=== PATIENT | male | born 1960 | race Caucasian/White ===

== ENCOUNTER 2025-06-07 15:20 | Emergency (ER) | payer BC ==
[~2025-06-07] VITALS: Ht 170.2 cm; Wt 91.8 kg
[~2025-06-07 15:20] MED LIST: CEFU500T66 PO
--- NOTE | 2025-06-07 15:42 | ELECTROCARDIOGRAPH REPORT ---
[facility] Test Date: 2025-06-07 Test Time: 15:40:52 Pat Name: PATRICIA BOSTON Department: [facility]- Patient ID: [facility]-[id number] Room: Gender: M Manager Billing: : 1960 Requested By: LORENA VALERO Order Number: [id number] Reading MD: Dr. AKSHAT Piedra Measurements Intervals [place] Rate: 99 P: 60 [place]: 166 QRS: 73 QRSD: 106 T: 13 QT: 417 QTc: 536 Interpretive Statements Sinus rhythm RSR' in V1 or V2, right VCD or RVH Prolonged QT interval Electronically Signed On 06-08-2025 17:18:[address] AKSHAT Piedra Please click the below link to view image of tracing.
--- NOTE | 2025-06-07 15:57 | RADIOLOGY REPORT ---
CHEST RADIOGRAPH Indication: sob Technique: Frontal and lateral view of the chest was obtained Comparison: None FINDINGS: Lines and Tubes: None Lungs: Increased interstitial prominence. This may represent pulmonary vascular congestion and/or viral pneumonia. Pleura: No effusion.No pneumothorax. Cardiomediastinal contours: Unremarkable Bones: Unremarkable IMPRESSION: Increased interstitial prominence. This may represent pulmonary vascular congestion and/or viral pneumonia.
[2025-06-07 15:59] LABS: MEAN PLATELET VOLUME 7.7 FL (7.4-10.4); RED CELL DISTRIBUTION WIDTH 14.4 % (11.5-14.5)
[2025-06-07 16:16] LABS: CREATININE 1.07 MG/DL (0.60-1.10); PRO BRAIN NATRIURETIC PEPTIDE 32 PG/ML (0-125); TOTAL CARBON DIOXIDE 22.5 MMOL/L (24-32); eCRCL 66 ML/MIN; eGFR 70 ML/MIN
--- NOTE | 2025-06-07 16:17 | Physician Documentation ---
History of Present Illness ~ Chief Complaint: Shortness of Breath Stated Complaint: SOB Time Seen by MD: 16:20 HPI 65-year-old male presents to the ED with increasing shortness of breath over the last week. States he has a cough as well. States he stopped smoking 15 years ago and has never been diagnosed with the your COPD. He reports that he feels as though he can not take a full breath. Denies any fevers or nausea vomiting. denies any chest pain Day of Onset: Jun 07, 2025 Medication Reconciliation Allergies: Coded Allergies: shellfish derived (Unverified Allergy, Intermediate, lips swell, 06/07/25) Scheduled Budesonide/Formoterol Fumarate (Symbicort 80-4.5 Mcg Inhaler), 2 PUFFS INH Q12H Cefuroxime Axetil (Cefuroxime), 1 TAB PO Q12H Scheduled PRN albuterol inhaler (Pro-Air Inhaler), 2 PUFFS INH Q4HPRN PRN for wheezing Past Medical History Past Medical History: Hypertension Alcohol Use: Heavy Physical Exam Vital Signs: Temperature: 97.6, Source: Temporal, Heart Rate: 98, Respiratory Rate: 18, BP: 161/88, Pulse Oximetry: 99, Weight: 91.800 Physical Exam General: Alert, no apparent distress. Respiratory: Auditory wheezes particularly in the right lung araujo Chest: No accessory muscle use. Cardiovascular: Regular rate and rhythm, no murmurs. Neurologic: Oriented x4. Psychiatric: Normal mood and affect. Skin: Normal color, warm and dry. No edema, no ecchymosis. Progress Results/Orders Results/Orders Orders - OMI WOLFE [employer]DER Svn Treatment (06/07/25 ) Completed Orders - OMI WOLFE [employer] Ipratropium/Albuterol Nebule (Ipratrop/A (06/07/25 16:30) Methylprednisolone Sod Succ (Solumedrol (06/07/25 16:30) Medications Received in ER Medications (Trade) Dose Ordered Sig/Rayne Route PRN Reason Start Time Stop Time Status Last Admin Dose Admin (ipratrop/ albuterol 0.5-3(2.5) MG/3ml nebule) 3 ml ONCE ONCE NEB 06/07/25 16:30 06/07/25 16:31 DC 06/07/25 16:38 3 ML (SoluMEDROL 125mg inj) 125 mg ONCE ONCE IV 06/07/25 16:30 06/07/25 16:31 DC 06/07/25 17:07 125 MG Vital Signs 06/07/25 06/07/25 06/07/25 06/07/25 15:27 16:42 16:48 17:13 Temp 97.6 97.6 Pulse 98 68 104 97 Resp 18 16 16 21 B/P (MAP) 161/88 155/97 (116) Pulse Ox 99 96 100 98 O2 Delivery Room Air* Room Air* O2 Flow Rate 0 0 0 FiO2 21 21 21 Laboratory Tests Test 06/07/25 15:40 06/07/25 17:37 White Blood Count 9.5 Red Blood Count 4.67 L Hemoglobin 13.3 L Hematocrit 40.2 L Mean Corpuscular Volume 85.9 Mean Corpuscular Hemoglobin 28.6 Mean Corpuscular Hemoglobin Concent 33.2 Red Cell Distribution Width 14.4 Platelet Count 202 Mean Platelet Volume 7.7 Neutrophils (%) (Auto) 69.9 Lymphocytes (%) (Auto) 16.1 L Monocytes (%) (Auto) 9.9 Eosinophils (%) (Auto) 2.6 Basophils (%) (Auto) 1.5 H Neutrophils # (Auto) 6.6 Lymphocytes # (Auto) 1.5 Monocytes # (Auto) 0.9 Eosinophils # (Auto) 0.2 Basophils # (Auto) 0.1 CBC Comment Sodium Level 133 L Potassium Level 3.4 L Chloride Level 97 L Carbon Dioxide Level 22.5 L Anion Gap 14 Blood Urea Nitrogen 9 Creatinine 1.07 Estimated GFR/1.73 m2 70 BUN/Creatinine Ratio 8.4 L Glucose Level 125 H Calcium Level 8.8 Troponin I High Sensitivity 13 Pro-B-Type Natriuretic Peptide 32 Albumin 3.6 Chemistry Comments Medical Decision Making Additional information obtaine: old records Findings Patient's workup was grossly unremarkable including labs that showed no signs that would be concerning for a cardiac event. Chest x-ray was mostly unremarka ble as well per my interpretation. EKG was reassuring without any signs of ST- elevation or depression no axis deviation and normal sinus rhythm I provided the patient with a an SVN treatment and dose of Solu-Medrol. After receiving treatment he reported improved symptoms. I listened to his lungs in a could no longer hear audible wheezes and I did notice that he had increased air movement.. At this time I am suspicious for an underlying COPD diagnosis which he will obtain in the outpatient setting. In the meantime I am going to send a prescriptions to his pharmacy in support of this diagnosis and his symptoms Heart Score: 2 Differential Dx:Considerations: Include: anxiety, asthma, bronchitis, cardiogenic shock, CHF, COPD, dysrhythmia, hypertension, accelerated, hypertension, essential, hypertension, malignant, hyperventilation, hyponat remia, myocardial infarction, panic attack, pneumonia, pneumonitis, pneumothorax, PSVT, pulmonary embolism, respiratory distress, respiratory failure, sinusitis, upper resp. infection, other Departure Disposition: HOME / SELF CARE / HOMELESS Impression: Primary Impression: Chronic obstructive pulmonary disease Condition: Improved Discharge Instructions: COPD and Physical Activity Additional Instructions: As I explained to you I sent you both a rescue inhaler and a daily maintenance inhaler. Again it is important that she follow up with the primary care to obtain a pulmonary function test which can help guide care going forward. Return to the ED if you have any other worsening symptom Referrals: NO PRIMARY CARE PROVIDER (PCP) Prescriptions Budesonide/Formoterol Fumarate (Symbicort 80-4.5 Mcg Inhaler) 80 Mcg-4.5 Mc g/Actuation Hfa.aer.ad 2 PUFFS INH Q12H for 30 Days, #2 GM 0 Refills Prov: OMI WOLFE NP 06/07/25 albuterol inhaler (Pro-Air Inhaler) 8.5 Gm Inhaler 2 PUFFS INH Q4HPRN PRN for wheezing for 30 Days, #18 GM Prov: OMI WOLFE NP 06/07/25 Education Educated: Patient Educated regarding: diagnosis Signature Scribe Signature: g Attestation: Scribed for Omi Wolfe Np by Omi Collazo NP . 06/07/25 17:44 GLADIS BELLO Jun 07, 2025 16:17 OMI WOLFE NP Jun 07, 2025 16:39
[2025-06-07] MEDS: ipratropium/albuterol 3ml nebule NEB ONE (16:38)
[2025-06-07 16:42] VITALS: PULSE 68; RESP 16; O2SAT 96
[2025-06-07 16:48] VITALS: PULSE 104; RESP 16; O2SAT 100
[2025-06-07 17:13] VITALS: PULSE 97
[2025-06-07] MEDS ORDERED: ALBU8HFA INH (17:43)
[2025-06-07] MEDS ORDERED: BUDE10.22 INH (17:43)
[2025-06-07 18:10] VITALS: BP 160/95; RESP 16; TEMP 97.6; O2SAT 98
== END 2025-06-07 18:00 | disposition home or self-care (01) ==
LOC: ER 15:21
DX: J44.9 Chronic obstructive pulmonary disease, unspecified (principal); I10 Essential (primary) hypertension; F10.90 Alcohol use, unspecified, uncomplicated; Z91.013 Allergy to seafood; Z79.899 Other long term (current) drug therapy; Y90.9 Presence of alcohol in blood, level not specified
CPT/HCPCS: 36415; 71046; 80048; 83880; 84484; 85025; 93005; 94640; 96374; 99285; J2919; 94760